=== PATIENT | female | born 1995 | race Caucasian/White ===

== ENCOUNTER 2021-06-04 01:20 | Day surgery (SDC) | payer OTHER, SELFPAY ==
[2021-05-27 16:14] VITALS: BMI 24.7
--- NOTE | 2021-06-03 14:16 | WPDANESEPPF ---
Anes - Initial Pre Proc Eval Procedure: Operation Date: 06/04/21 07:30 Proposed Procedures p Abdominoplasty - Mikie Israel MD Date/Time: 06/03/21 14:16 Surgeon: Mikie Israel MD Pre Op Diagnosis: Skin Laxity Patient Data Age: 25 Gender: F Height: 1.57 m Weight: 61.24 kg Allergies Allergy/AdvReac Type Severity Reaction Status Date / Time No Known Allergies Allergy Unknown Verified 02/17/21 08:57 Home Medications Medication Instructions Recorded Confirmed Type cetirizine [Zyrtec] 10 mg PO DAILY 02/17/21 05/27/21 History fexofenadine [Chhaya Allergy] 180 mg PO DAILY 02/17/21 05/27/21 History carisoprodol 350 mg PO TID PRN 05/28/21 05/28/21 History docusate sodium 100 mg capsule 100 mg PO DAILY #14 cap 05/28/21 05/28/21 Rx ondansetron HCl [Zofran] 4 mg PO Q8H PRN 05/28/21 05/28/21 History oxycodone-acetaminophen 1 tablet PO Q6H PRN 05/28/21 05/28/21 History carisoprodol 350 mg tablet 350 mg PO TID PRN #21 tablet 06/01/21 Rx oxycodone-acetaminophen 5 mg-325 1 tablet PO Q6H PRN #15 tablet 06/01/21 Rx mg tablet Patient hx anesthesia problems: none Family hx anesthesia problems: none PMFSH Past Medical History Medical History Complication of anesthesia Surgical History Surgical History History of Family History Family History Other Breast cancer Esophageal cancer Heart attack Social History Social History Smoking status: Never smoker Alcohol intake: never Substance use: never Substance use type: does not use Living arrangements: with family Spiritual care concerns: No Anes - Eval Final PreProcedure Day of Procedure 06/03/21 14:16 Patient weight: normal Heart: regular rate and rhythm Lungs: clear to auscultation and normal air movement Airway: Mallampati scale Neurological: alert and oriented Last oral intake: >/= 8 hours ASA classification: II Emergent: no Anesthetic plan: proceed Anesthesia type and monitoring: general ETT and standard monitoring Informed Consent: The patient's anesthetic plan and its attendant risks and benefits were discussed with the patient/family/POA. Questions were solicited and answers provided to the satisfaction of the patient/family/POA.
[2021-06-04] VITALS (15 sets, daily range): BP systolic 90–118; BP diastolic 57–85; PULSE 47–90; RESP 10–20; TEMP 36.3–36.9; O2SAT 95–100; BMI 24.8
--- NOTE | 2021-06-04 06:47 | WPDHPUPDATE1 ---
History and Physical Update Update Date/Time: 06/04/21 06:47 History and Physical has been reviewed, including an updated exam of the patient. There are NO changes in the patient's condition. Risks, benefits, and alternatives have been discussed and questions answered. Patient agrees to proceed with procedure.
[2021-06-04 06:57] LABS: Urine Cotinine NEGATIVE
--- NOTE | 2021-06-04 06:58 | W.PM.PROC2 ---
Procedure Note - Detailed Date of Procedure 06/04/21 Pre-op Diagnosis Skin Laxity Post-op Diagnosis same Procedure Performed Progressive tension abdominoplasty with lateral extended scar. Surgeon Mikie Israel MD Anesthesia general Findings Tissue removed - 1288 grams Description of Procedure She is here today for abdominoplasty. Previously and again today the risks, benefits, alternatives were discussed in extensive detail. I wanted her to be very realistic about the risks involved as well as expectations. We discussed aftercare and what to monitor for. I was very upfront about the risks of wound breakdown leading to loss of skin, open wounds, and need for additional procedures with permanent abdominal deformity. We discussed DVT/PE risks and management. Made sure answered all of her questions to her satisfaction today and consent was obtained. She was marked in the preoperative holding area with their verification. The patient was taken to the operating room placed supine on the operating table. Anesthesia was provided by anesthesiology. A gonzales catheter was started. She was prepped and draped in a standard sterile fashion. A surgical time-out was taken. I placed the patient in a flexed position to verify the upper and lower markings would reach. I then placed her supine. A thorough abdominal examination was completed. Stab incisions were made and used tumescent solution. A 10 blade was used to make the upper incision. I continued dissection down to the level of fascia. Elevated just what was necessary for repair of the diastasis and discontinuous undermining otherwise. I then again flexed the bed to verify the upper skin flap would reach the lower markings without tension. Once verified I placed her supine once again and a 10 blade used to make the lower incision. I elevated up to level the umbilicus and left the umbilicus intact on a well-vascularized stalk. The intervening tissue was removed. A 2 mm blunt cannula and Exparel which was mixed 20 cc in 100 cc for a total volume of 120 cc I injected deep to the fascia bilaterally as well as along the incision lines. I plicated the diastasis recti using 0 PDO stratafix barbed suture. This was in 2 separate layers using 2 separate sutures as well. I repaired around the umbilicus leaving plenty of room for well-vascularized stalk of the umbilicus with 2-0 PDS. The patient was flexed and starting from superior to inferior began plication using 2-0 Vicryl to obliterate all space in a standard progressive tension fashion. At the umbilicus I marked out the location of the skin and inset this with 3-0 Monocryl and 4-0 nylon. I continued the remainder of the plication using 2-0 Vicryl until I reached my lower planned scar line. I trimmed any excess skin of the upper flap making sure this was a tension-free closure. I then approximated using a 3 point suture with 2-0 Vicryl followed by 3-0 stratafix ,running subcuticular 4-0 Monocryl, and tissue glue. Fluffs and an abdominal binder were placed. The patient was transferred to the bed in a flexed position. Awoken and taken to the PACU without difficulty. All instrument and sponge counts were correct at the end of the case. Estimated Blood Loss 40 Drains No Packing No Pathology none sent Complications No immediate complications Condition stable Disposition PACU
[2021-06-04] MEDS: LACTATED RINGERS 1,000 ML 30 ML IV CONT ×3 (07:05→11:43)
[2021-06-04 07:08] LABS: Hematocrit 39.1 % (37.0-47.0); Hemoglobin 13.8 g/dL (12.0-15.0)
--- NOTE | 2021-06-04 07:11 | ECG_ITS ---
Measurements Intervals [place] Rate: 74 P: 38 GA: 204 QRS: 66 QRSD: 85 T: 31 QT: 363 QTc: 404 Interpretive Statements SINUS RHYTHM WITH SINUS ARRHYTHMIA INCOMPLETE RIGHT BUNDLE BRANCH BLOCK BORDERLINE ECG Electronically Signed On 06-04-2021 7:53:00 CDT by Kike Nunez D.O.
[2021-06-04] MEDS: FAMOTIDINE 20 MG/2 ML VIAL IV PUSH (07:17)
[2021-06-04] MEDS: SCOPOLAMINE 1.5 MG PATCH TRANSDERM (07:17)
[2021-06-04] MEDS: ceFAZolin 2 GM/D5W 50 ML 2 GM/50 ML BAG IVPB (07:28)
[2021-06-04] MEDS: TRANEXAMIC ACID 1,000MG/ISO100 1,000 MG/100 ML BAG 200 MG IVPB (07:28)
[2021-06-04] MEDS: BUPIVACAINE/EPINEPHRINE 0.5% 50 ML VIAL (08:21)
[2021-06-04] MEDS: LACTATED RINGERS IRRIG 1,000 ML, LIDOCAINE HCL 1% LOCAL INJ 50 ML, EPINEPHrine HCL INJ ... INFILTRATE (08:23)
[2021-06-04] MEDS: fentaNYL CITRATE INJ (*CRX) 100 MCG/2 ML VIAL 25 MCG IV PUSH (11:33)
--- NOTE | 2021-06-04 12:37 | PC.NURSE ---
This patient, Karina Shine, was received from PACU on 06/04/21 at 1237. Patient/family oriented to unit policies and routines
[2021-06-04] MEDS: LACTATED RINGERS 1,000 ML 125 ML IV CONT (13:10)
[2021-06-04] MEDS: carisoprodoL (*CRX) 350 MG TABLET PO ×2 (13:16→18:41)
[2021-06-04] MEDS: oxyCODONE/ACETAMINOPHEN (*CRX) 5-325 MG TABLET PO ×2 (16:03→20:28)
[2021-06-04] MEDS: ENOXAPARIN 40 MG/0.4 ML SYRINGE SUB-Q (18:40)
[2021-06-04] MEDS: DOCUSATE SODIUM 100 MG CAPSULE PO (21:21)
[2021-06-05] MEDS: carisoprodoL (*CRX) 350 MG TABLET PO ×2 (00:37→07:25)
[2021-06-05] MEDS: oxyCODONE/ACETAMINOPHEN (*CRX) 5-325 MG TABLET PO ×3 (00:47→10:00)
[2021-06-05 04:08] VITALS: BP 110/89; PULSE 71; RESP 16; TEMP 36.6; O2SAT 99
--- NOTE | 2021-06-05 07:12 | WPDPN ---
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 Will discharge home. Follow up in 1 week. Today we had a lengthy discussion about the care with her significant other. Went over what to monitor for. Activity limitations. This was a lengthy open-ended conversation making sure she was well informed. Answered all of her questions this. They voiced understanding. Will discharge home. Call with any questions or concerns in the meantime. We discussed what is a medical emergency and want to proceed to the emergency room/ dial 911. Subjective Date/time seen: 06/05/21 6:40 She states she has done well overnight. No nausea vomiting. No fevers or chills. No shortness of breath. No chest pain. No calf tenderness. Pain is controlled. Review of Systems Review of Systems: All systems reviewed & are unremarkable except as noted in HPI and below Exam Narrative: Exam Narrative: Abdomen soft. No signs of infection. No hematoma. No seroma. Good color and capillary refill. No calf tenderness. Negative Homans. Objective Data Vital Signs Vital Signs: Vital Signs - 24 hr 06/04/21 10:25 06/04/21 10:40 06/04/21 10:55 Temperature 36.4 C Pulse Rate 90 68 69 Respiratory Rate 18 10 L 14 Blood Pressure 104/62 117/72 117/60 Pulse Oximetry 100 100 95 06/04/21 11:10 06/04/21 11:25 06/04/21 11:40 Temperature Pulse Rate 77 74 78 Respiratory Rate 14 18 18 Blood Pressure 111/60 109/58 L 104/66 Pulse Oximetry 97 98 98 06/04/21 11:55 06/04/21 12:10 06/04/21 12:25 Temperature Pulse Rate 73 64 73 Respiratory Rate 16 12 18 Blood Pressure 118/75 107/64 106/62 Pulse Oximetry 97 95 95 06/04/21 12:32 06/04/21 12:45 06/04/21 15:45 Temperature 36.9 C 36.8 C Pulse Rate 82 62 58 L Respiratory Rate 20 18 16 Blood Pressure 105/57 L 101/63 106/85 Pulse Oximetry 98 98 100 06/04/21 19:08 06/04/21 23:34 06/05/21 04:08 Temperature 36.3 C L 36.7 C 36.6 C Pulse Rate 47 L 56 L 71 Respiratory Rate 16 16 16 Blood Pressure 90/60 L 102/60 110/89 Pulse Oximetry 98 100 99 Intake/Output Intake/Output: Intake & Output 06/02/21 06/03/21 06/04/21 06/05/21 23:59 23:59 23:59 23:59 Intake Total 2900 Output Total 2450 100 Balance 450 -100 Meds/Results Medications: Active Medications Generic Name Dose Route Start Last Admin Trade Name Freq PRN Reason Stop Dose Admin Carisoprodol 350 mg 06/04/21 12:50 06/05/21 00:37 Carisoprodol (*Crx) 350 Mg Tablet PO 350 mg Q6HR LAVON Administration Docusate Sodium 100 mg 06/04/21 21:00 06/04/21 21:21 Docusate Sodium 100 Mg Capsule PO 100 mg Q12HR LAVON Administration Enoxaparin Sodium 40 mg 06/04/21 17:00 06/04/21 18:40 Enoxaparin 40 Mg/0.4 Ml Syringe SUB-Q 40 mg DAILY@1700 LAVON Administration Morphine Sulfate 2 mg 06/04/21 10:04 Morphine Sulfate (*Crx) 2 Mg/Ml Inj IV PUSH Q2H PRN PAIN RATED 7-10 Ondansetron HCl 4 mg 06/04/21 10:04 Ondansetron Inj 4 Mg/2 Ml Vial IV PUSH Q6H PRN Nausea Oxycodone/Acetaminophen 1 - 2 tablet 06/04/21 10:04 06/05/21 04:08 Oxycodone/Acetaminophen (*Crx) 5-325 Mg Tablet PO 1 tablet Q6H PRN Administration Pain Labs Labs: Laboratory Results - last 24 hr 06/04/21 06:59 Hgb 13.8 Hct 39.1
--- NOTE | 2021-06-05 07:15 | PM.DS ---
DS: Admitting Diagnosis Admitting Diagnosis Skin laxity DS: Discharge Diagnosis Discharge Diagnosis (1) Skin laxity: Code(s): L57.4 - Cutis laxa senilis Status: Acute DS: Summary Hospital Course Hospital Course: Patient underwent after progressive tension abdominoplasty. Postoperatively has done very well. Pain controlled. Tolerating diet. Ambulating. Will discharge home. Time Spent with Patient Time attestation: Total time spent providing and/or coordinating discharge services: Exam Narrative: Exam Narrative: Abdomen soft. No signs of infection. No hematoma. No seroma. Good color and capillary refill. No calf tenderness. Negative Homans. DS: Data Data Completed and Pending Labs on day of discharge: Labs from last 24 hours 06/04/21 06:59 Hgb 13.8 Hct 39.1 Discharge Plan Discharge Patient Disposition: Home, Self-Care Discharge Instructions: POST OPERATIVE DISCHARGE INSTRUCTIONS MIKIE ISRAEL M.D. [facility] [address] [place] [address] [address] for 24 hours after anesthesia and while you are taking pain medication. Take all prescribed medication as directed Diet as tolerated. No lifting or activity that raises blood pressure for 48 hours. Regular walking / ambulation. May shower.. Once you shower do not take pain medication before showering as the combination of medication and heat may cause you to feel dizzy or pass out. No pools or tubs for 2 weeks. Call with any questions or concerns. Slowly stand up straight over the week as tolerated. No lifting more than 20 pounds or straining for 6 weeks. Dressing Care: Abdominal binder 23 hours per day. If you have any questions or concerns, please call the office . If it is after hours you will be directed to the applications scientist exchange. Shortness of breath, chest pain, or other medical emergency dial 911 / proceed to the Emergency Room. Remove the Scopolamine patch that was placed behind your ear in 72 hours or less. Wash your hands after touching. Stand Alone Forms: General Discharge Instructions Follow-up/Referrals: Mikie Israel MD [Physician] - 1 Week Discharge Medications: Continued fexofenadine 180 mg PO DAILY RF: 0 cetirizine 10 mg PO DAILY RF: 0 carisoprodol 350 mg tablet 350 mg PO TID PRN (Reason: Muscle Pain) RF: 0 oxycodone-acetaminophen 5-325 mg tablet 1 tablet PO Q6H PRN (Reason: Pain) RF: 0 ondansetron HCl [Zofran] 4 mg tablet 4 mg PO Q8H PRN (Reason: Nausea) RF: 0 docusate sodium [Colace] 100 mg capsule 100 mg PO DAILY Qty: 14 RF: 0 carisoprodol [Soma] 350 mg tablet 350 mg PO TID PRN (Reason: muscle pain) Qty: 21 RF: 0 oxycodone-acetaminophen [Percocet] 5-325 mg tablet 1 tablet PO Q6H PRN (Reason: pain) Qty: 15 RF: 0
[2021-06-05] MEDS: DOCUSATE SODIUM 100 MG CAPSULE PO (07:24)
[2021-06-05 08:35] VITALS: BP 99/62; PULSE 85; RESP 16; TEMP 37.1; O2SAT 99
== END 2021-06-05 10:20 | disposition home or self-care (01) ==
LOC: ANHSURGERY 07:11 → ANHOB2 12:36
PROVIDERS: Anesthesiology; Visit Provider Surgery Plastic and Reconstructive Surgery
PROC: (CPT 15830; principal; 2021-06-04 07:30)
DX: Z41.1 Encounter for cosmetic surgery (principal); L57.4 Cutis laxa senilis; Z79.899 Other long term (current) drug therapy
CPT/HCPCS: 15830; 15847; 80307; 85014; 85018; 93005; 99199; A9270; J0171; J0330; J0690; J1100; J1170; J1200; J1650; J2250; J2405; J2704; J3010; J7120

== ENCOUNTER 2025-11-04 13:35 | Outpatient (CLI) | payer OTHER, SELFPAY ==
--- NOTE | ~2025-11-04 | MMUS_ITS ---
EXAMINATION: US breast LT limited, MM diagnostic guerda BI w xiomara HISTORY: Palpable abnormality on the left. TECHNIQUE: Grayscale sonography over the area(s) of interest with color Doppler if there is a finding. Craniocaudal and mediolateral oblique 3-D tomosynthesis images were obtained and synthetic 2-D images were generated. CAD analysis was submitted and interpreted. COMPARISON: None available. ULTRASOUND FINDINGS: No cystic or solid masses are seen in the area(s) of concern. Symptoms nothing was seen in the palpable area sonographically, the decision was made to perform mammography. MAMMOGRAM FINDINGS: BREAST PARENCHYMAL COMPOSITION: Dense: The breasts are heterogeneously dense, which may obscure small masses. In the area of palpable clinical concern, there is some asymmetric breast parenchyma of the axillary tail. This does not appear masslike and is considered normal. There is a small amount on the right as well. No suspicious masses are seen. There are no suspicious calcifications. No unexplained architectural distortion is seen. There are no skin or nipple abnormalities identified. There is no adenopathy seen on the images submitted. IMPRESSION: No mammographic evidence to suggest malignancy is seen. The patient may return to screening mammography as per ACR guidelines. BI-RADS 1 - Negative. Reviewed, dictated and finalized at location C[facility] IMPRESSION: No mammographic evidence to suggest malignancy is seen. The patient may return to screening mammography as per ACR guidelines. BI-RADS 1 - Negative.
--- OUTSIDE RECORDS SUMMARY | 2025-11-04 15:19 | XMS_ITS | Data Portability ---
Author Organization [facility] Address [address] [place] [place] [address] [place] [address] Assessment Encounter Date Assessment Date Assessment LastModified by Organization Details LastModified Time 10/24/2024 10/24/2024 Annual gynecological exam performed. Patient will come back in a year unless there are new symptoms. [email or web address] Not available 10/24/2024 14:30:32 Plan of Treatment Reminders Order Date Submit Date Provider Last Modified By Organization Details Last Modified Time Details Appointments None recorded. Lab pap, IG + HR HPV - HPV regardless but if HPV is positive need subtyping 16,18/[address]/GC/Trich 2023 [facility] (Lab), [address], [place], [address], 4 14:40:22 Referral None recorded. Procedures None recorded. Surgeries None recorded. Imaging US, breast, unilateral 2023 024 [facility], [address], [address], [place], [address], 5 05:00:56 Medication Orders Mirena 21 mcg/24 hr (up to 8 years) 52 mg intrauterin e device 2023 024 [id number], [address], [place], [place], [id number], 4 14:33:12 Patient TargetsNo targets recorded. Patient InstructionsNo instructions recorded. Reason for Referral None Reported. Results Created Date Observation Date Name Description Value Unit Range Abnormal Flag Note LastModifiedBy Organization Detail LastModifiedTime 10/24/20 24 10/24/2024 IMAGE GUIDE D PAP AND HPV REGAR DLESS image guided Pap, HPV regardless of Pap result SEE RESULT S BELOW abnormal CASE REPOR T: Cytol ogy Gynec ologi stephanie Repor t Case: [id number] Autho malcom johnson Provi gladys: Dermo dy, Lila , ANP, DIRECTOR VALIDATION Colle cted: 10/24 1423 Order ing Locat ion: [place] Path[facility] log[facility] Recei briana: 10/25 1055 First Scree n: Bella Turner ret, CT Patho logis t: Terrell clement , Neetu Yepez MD Speci men: Scree anuradha Pap - Image d, Cervi x STATE MENT OF ADEQU ACY: Satis facto ry for evalu ation Trans forma tion zone compo nent prese nt ----- ----- ----- ----- ----- ----- ----- ----- ----- ----- ----- ----- ----- ----- ----- ----- ----- ---- FINAL DIAGN OSIS: Epith elial Cell Abnor malit y, Squam ous Cell: Atypi stephanie Squam ous Cells of Undet ermin ed Signi antonella ce (ASC- US). Shift in allegra sugge stive of bacte rial vagin osis. Elect hayley arriola by Neetu clement MD on 11/05 at 1337 [facility] ROOM ATTENDANT ----- ----- ----- ----- ----- ----- ----- ----- ----- ----- ----- ----- ----- ----- ----- ----- ----- ---- HPV RESUL TS: HPV mRNA E6/E7 : Posit nacho - HPV mRNA Detec [place] HPV GENOT YPE 16 (VISH) : Not Detec [place] HPV GENOT YPE 18/45 (VISH) : Not Detec [place] NOTE: This high risk HPV mRNA assay detec ts fourt een high- risk HPV types (16, 18, 31, 33, 35, 39, 45, 51, 52, 56, 58, 59, 66, 68) witho ut diffe renti ation . This assay can diffe renti ate HPV 16 from HPV 18/45 , but does not diffe renti ate betwe en HPV 18 and HPV 45. A negat nacho HPV 16, 18/45 genot ype assay resul t does not exclu de the possi bilit y of cytol ogic abnor malit ies or of futur e or under lying SOCORRO 1, SOCORRO 3 or cance r. COMME NT: This speci men was revie wed by a Cytot echno logis t and/o r Patho logis t (as indic ated in this repor t) after evalu ation using the Thinp rep Imagi ng Syste m. CLINI STEPHANIE INFOR MATIO N: Menst rual Statu s: LMP (if appli cable ): Clini stephanie Histo ry/Pr eviou s Pap: Type of Neopl gris (if appli cable ): Signi fican t Clini stephanie Findi ngs: Other Histo ry: Hormo shiva (if appli cable ): VANESSA ROSS FOLLO W-UP: Follo w up as warra nted, based on curre nt guide lines and indiv idual patie nt consi derat ions. Not Available [facility] (Lab) [address], [place], [address], 11/05/2024 14:40:22 10/24/20 24 10/24/2024 TRICH OMONA S VAGIN BOBO (RRNA ) trichomonas vaginalis ribosomal RNA (rrna) Negati ve negati ve Not Available [facility] (Lab) [address], [place], [address], 11/05/2024 14:40:22 10/24/20 24 10/24/2024 CT/GC (VISH) , THINP REP VIAL chlamydia trachomatis, PCR Negati ve negati ve Not Available [facility] (Lab) [address], [place], [address], 11/05/2024 14:40:23 10/24/20 24 10/24/2024 CT/GC ([facility]) , THINP REP VIAL neisseria gonorrhoeae, PCR Negati ve negati ve Not Available [facility] (Lab) [address], [place], [address], 11/05/2024 14:40:23 Result Notes None recorded. Problems Name Problem SNOMED Code Status Onset Date Resolution Date Notes Provider Name and Address Organization Details Recorded Time Amenorrh ea 17216462 Completed 201302/03/2022 Absence of menstruat ion;Recor ded Elsewhere : No Locati on: [facility] So urce: EHR Chron ic: N Practic e ID: 0001 Bill able Time: 08:30:00 AM Kita [facility] 2 12:12:13 Ultrason ography Completed 201302/03/2022 screening for malformat ion using ultrasoni cs;Practi ce ID: 0001 Kita [facility] 2 12:15:58 Antenata l screenin g Completed 201302/03/2022 screening for malformat ion using ultrasoni cs;Practi ce ID: 0001 Kita [facility] 2 12:12:15 Congenit al malforma tion 437055067 Completed 201302/03/2022 screening for malformat ion using ultrasoni cs;Practi ce ID: 0001 Kita [facility] 2 12:12:22 Pregnanc y test positive [id number] Completed 03/11/ 2014 02/03/2022 Positive Test;Prac marco a ID: 0001 Kita george, [facility] 2 12:12:39 Primigra filipe [id number] Completed 201302/03/2022 Supervisi on of normal first ;Practice ID: 0001 Kita george [facility] 2 12:12:41 Labor and delivery complica [place] by heart rate anomaly 708970024 Completed 201302/03/2022 HEART RATE NON REASSURIN G;Practic e ID: 0001 Kita george, [facility] 2 12:12:34 Single live from singleto n pregnanc y [id number] Completed 201302/03/2022 Mother with single liveborn; Practice ID: 0001 Kita george [facility] 2 12:15:51 Postpart um care Completed 201302/03/2022 Postpartu m follow-up ;Practice ID: 0001 Kita george, [facility] 2 12:12:35 Family planning surveill ance Completed 201402/03/2022 Surveilla nce of other contracep tive method;Pr actice ID: 0001 Kita george [facility] 2 12:12:23 Pregnanc y test negative [id number] Completed 201402/03/2022 Negative Test;Prac marco a ID: 0001 Kita george [facility] 2 12:12:38 Speciali zed medical examinat ion Completed 201402/03/2022 Routine gynecolog ical examinati on;Practi ce ID: 0001 [facility] 12:15:55 Screenin g for malignan t neoplasm of cervix Completed 201402/03/2022 Pap Smear;Pra ctice ID: 0001 Kita george [facility] 2 12:12:43 Clinical finding Completed 201402/03/2022 Encounter for surveilla nce of injectabl e contracep tive;Prac marco a ID: 0001 Kita george [facility] 2 12:12:[address] Concept Completed 201502/03/2022 Encntr for television servicer exam (general) (routine) w/o abn findings; Practice ID: [address] [facility] 2 12:15:53 Infectio n screenin g Completed 201502/03/2022 Encounter for screening for oth infec/par astc diseases; Recorded Elsewhere : No Locati on: [facility] So urce: EHR Chron ic: N Practic e ID: 0001 Bill able Time: 02:45:00 PM Kita Espinoza [facility] 2 12:12:26 Syphilis test finding [id number] Completed 201502/03/2022 Encntr screen for infection s w sexl mode of transmiss ;Recorded Elsewhere : No Locati on: [facility] So urce: EHR Chron ic: N Practic e ID: 0001 Bill able Time: 02:45:00 PM Kita Espinoza [facility] 2 12:15:56 Body mass index 25-29 - overweig 675164549 Completed 201502/03/2022 Body mass index (BMI) 26.0-26.9 , adult;Rec orded Elsewhere : No Locati on: [facility] So urce: EHR Chron ic: N Practic e ID: 0001 Bill able Time: 02:45:00 PM Kita Espinoza [facility] 2 12:12:17 Galactor nkechi [facility] [id number] Completed 201602/03/2022 Galactorr hea not associate d with kj kent;Practic e ID: [address] [facility] 2 12:12:25 Insertio n of intraute rine contrace ptive device Completed 201602/03/2022 Encounter for insertion of intrauter ine contracep tive device;Pr actice ID: [address] [facility] 12:12:32 Clinical finding Completed 201602/03/2022 Presence of (intraute rine) contracep tive device;Re corded Elsewhere : No Locati on: [facility] So urce: EHR Chron ic: N Practic e ID: 0001 Bill able Time: 03:15:00 PM Kita Espinoza [facility] 2 12:12:20 Problem Notes None recorded. Procedures Surgical History Date Name Laterality Status Provider Name and Address Organization Details Recorded Time 11/05/20 24 IUD Replacement completed LILA ANTON NP [address], [place], [address], [facility] 11/05/2024 14:32:46 11/14/19 [address] [facility] 10/24/2024 14:34:58 09/14/20 16 Date of Last Pap Smear completed [facility] 10/24/2024 14:26:18 Imaging Results None recorded. Procedure Notes None recorded. Medical Equipment None Reported. Allergies Allergen ID Allergen Name Allergen Category Reaction Reaction Severity Criticality Documentation Date Start Date Code Code System Note Provider Name and Address Organization Details Recorded Time 26362 weed pollen environme nt,medica tion Not available Not available Not available 10/24/[address] [facility] 14:26:18 85102 tree and shrub pollen environme nt,medica tion Not available Not available Not available 10/24/2024 [facility] 14:26:18 01999 cat dander environme nt facial swelling moderate Not available 10/24/[address] [facility] 4 14:26:18 62212 Canis lupus familiari s extract environme nt Not available Not available Not available 10/24/2024 09869 4 [facility] 4 14:26:18 40110 sesame seed extract food Not available Not available Not available 10/24/2024 94567 46 RxNorm [facility]ini [facility] 4 14:26:18 Medications Name Sig Start Date Stop Date Status Note LastModified by Organization Details LastModified Time Mirena 21 mcg/24 hr (up to 8 years) 52 mg intrauter ine device Take 1 device by intraute rine route. 2023 active Not Available Not Available Not Avai lable metronida zole 500 mg tablet Take 1 tablet twice a day by oral route for 7 days. 12/05 completed Not Available Not Available Not Available Depo-Prov era 150 mg/mL intramusc ular suspensio n inject 1 millilit er by intramus cular route every 3 months 06/24 completed Prescrib ed Elsewher e: No Locat ion: [facility] odify By: ismael scanlon DateTime : 03/31/20 15 03:00:00 PM Not Available Not Available Not Available Vitamin D2 1,250 mcg (50,000 unit) capsule take 1 capsule by oral route every week 09/03 completed Prescrib ed Elsewher e: No Locat ion: [facility] M odify By: moises carlos DateTime : 03/15/20 14 10:03:55 AM Not Available Not Available Not Available Depo-Prov era 150 mg/mL intramusc ular syringe inject 1 millilit er by intramus cular route every 3 months 09/13 completed Prescrib ed Elsewher e: No Locat ion: [facility] odify By: shadi garcia DateTime : 05/27/20 17 02:26:36 PM Not Available Not Available Not Available Glenis Evans 380A 11/05 completed Not Available Not Available Not Available Triveen-D uo DHA 29 mg-1 mg-400 mg oral pack take 2 by Oral route every day for 30 days 02/20 completed Prescrib ed Elsewher e: No Locat ion: [facility] odify By: gianfranco carlos DateTime : 01/23/20 14 08:30:00 AM Not Available Not Available Not Available One Daily 27 mg iron-800 mcg tablet take 1 tablet by oral route every day 10/24 completed Prescrib ed Elsewher e: Yes Loca tion: [facility] odify By: moises carlos DateTime : 09/03/20 14 11:30:00 AM Not Available Not Available Not Available Vitals Date Recorded Body height Body mass index (BMI) Body weight Systolic And Diastolic Provider Name and Address Organization Details Last Updated DateTime 10/24/2024 157.48 cm 22.2 kg/m2 84744.83 g 126/80 mm[Hg] [facility] 10/24/2024 14:31:52 Date Recorded Body height Body mass index (BMI) Body weight Systolic And Diastolic Provider Name and Address Organization Details Last Updated DateTime 11/05/2024 157.48 cm 22.6 kg/m2 79182.02 g 124/82 mm[Hg] [facility] 11/05/2024 14:30:11 Social History Question Answer Notes LastModified by Organizat ion Details LastModified Time Tobacco Smoking Status Never Smoker Kita Alexis [facility] 02/03/2022 13:35:13 Do You Have An Advance Directive? No [email or web address] Information n ot available 10/24/2024 How Many Years Have You Consumed Alcohol? 7 [email or web address] Information not available 10/24/2024 Are You Blind Or Do You Have Difficulty Seeing? No Information n ot available 02/03/2022 What Is Your Level Of Caffeine Consumption? Moderate [email or web address] Information not available 10/24/2024 How Much Tobacco Do You Chew? None [email or web address] Information not available 10/24/2024 In The 14 Days Before Symptom Onset, Have You Had Close Contact With A Laboratory-confirm ed COVID-19 While That Case Was Ill? No [email or web address] Information n ot available 10/24/2024 In The 14 Days Before Symptom Onset, Have You Had Close Contact With A Person Who Is Under Investigation For COVID-19 While That Person Was Ill? No [email or web address] Information not available 10/24/2024 Have You Been To An Area Known To Be High Risk For COVID-19? No [email or web address] Information not available 10/24/2024 Are You Deaf Or Do You Have Serious Difficulty Hearing? No Information not available 02/03/2022 What Type Of Diet Are You Following? REGULAR Information n ot available 02/03/2022 What Is The Highest Grade Or Level Of School You Have Completed Or The Highest Degree You Have Received? [id number] [email or web address] Information not available 10/24/2024 Are There Any Guns Present In Your Home? No Information not available 10/24/2024 Do You Use Protection During Sex? Usually [email or web address] Information not available 10/24/2024 Do You Use Your Seat Belt Or Car Seat Routinely? Yes Information not available 02/03/2022 Do You Have Smoke And Carbon Monoxide Detectors In Your Home? Yes Information not available 02/03/2022 How Much Tobacco Do You Smoke? No [email or web address] Information not available 10/24/2024 Do You Use Sunscreen Routinely? Yes Information not available 02/03/2022 Have You Used IV Drugs? No [email or web address] Information not available 10/24/2024 Do You Have Difficulty Walking Or Climbing Stairs? No Information not available 02/03/2022 Sex: Unknown Functional Status Question Answer Note LastModified by Organizat ion Details LastModified Time Do you use any illicit or recreational drugs? Yes [email or web address] Information not available 10/24/2024 What is your level of alcohol consumption? Occasional Information not available 02/03/2022 Are you able to walk independently without assistance or assistive devices? [email or web address] Information not available 02/03/2022 Are you able to care for yourself independently? 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 No Information not available 02/03/2022 What is your exercise level? Moderate Information not available 02/03/2022 Mental Status Question Answer Note LastModified by Organization D etails LastModified Time Do you feel stressed (tense, restless, nervous, or anxious, or unable to sleep at night)? [id number] Information not available 02/03/2022 Family History Relationship Description Onset Age of this Age Resolved Age Notes LastModified by Organization Details LastModified Time Maternal Grandfather Hypertensive disorder Not available 2021 13:33:19 Maternal Grandfather Diabetes mellitus Not available 2021 13:33:27 Maternal Grandmother Malignant neoplasm of breast Not available 2021 13:33:42 Maternal Uncle Hypertensive disorder Not available 2021 13:33:56 Maternal Uncle Diabetes mellitus Not available 2021 13:34:15 Father Hypertensive disorder Not available 2023 14:34:22 Father Diabetes mellitus [email or web address] Not available 2023 14:34:34 Medical History Condition Response Allergies (Food, seasonal, environmental ) N Other N Blood Transfusion N Drug/Latex Allergies/Reactions N Breast Cancer N Dermatologic Disorders N Lung Disease N Defects or Inherited Disease N Breast Problem N Gestational Diabetes N Hematologic disorders N Anesthesia Complications N History of STI N Deep Vein Thrombosis N Polycystic ovary syndrome N Anxiety Disorder N Autoimmune disease N Arthritis N Infertility N Polyps N Acid Reflux (GERD) N History of abnormal pap N Cancer N Stroke N Varicosities N Neurologic/Epilepsy N Endometriosis N High Cholesterol N Headaches N Fibromyalgia N Kidney Disease N Heart Problems N Kidney or Bladder Problems N Thyroid Problems N GI Problems N Eating Disorder N Anemia N Art (IVF or FET) N Psychiatric Illness N Ovarian Cancer N Diabetes N Pulmonary (TB, Asthma) N Hepatitis/Liver Disease N No Past Medical History N Eczema N Urinary Tract Infection N Abuse/Domestic Violence N Asthma N Trauma/Violence N Depression/ depression N Heart Disease N Pre-Eclampsia N Hypertension N Osteoporosis N Thrombophilias N Gynecological History Statement/Question Response Flow Light Date of LMP On BCP's at Conception? N N Was last menstrual period normal Y STIs/STDs N HPV Vaccine Y Duration of Flow (days) 5 Current Control Method IUD Age at First Child 18 Frequency of Cycle (Q days) 7 Sexually Active? Y IUD Age of first menstrual cycle 14 Date of Last Pap Smear 09/14/2016 Sexual Problems? N Desired Control Method IUD LMP Definite N Obstetrics History GPAL:G 1 P 1 0 0 1 Type Value Full Term 1 Living 1 Total 1 Past Encounters Encounter ID Performer Location Encounter Start Date Encounter Closed Date Diagnosis/Indication Diagnosis SNOMED-CT Code Diagnosis ICD10 Code Diagnosis IMO Codes Diagnosis Note [id number] Hugo Casey MD [place] [address] [address] 10/24/2024 14:24:07 10/24/2024 15:10:47 Gynecologic examination 64418021 Z01.419 Annual gynecologi stephanie exam performed. Patient will come back in a year unless there are new symptoms. Suggest Calcium with Vitamin D if not eating in diet. Patient advised to get annual flu shot. Recommend yearly physicals and perform monthly breast exams. Genetic testing is available for patients with family history of cancer. Engage in safe sexual practices, use condoms. Encouraged to have daily exercise. Avoid tobacco and illicit drugs, moderation of alcohol. If BMI greater than 25 dietary consult advised. If you have any questions please call or email. Pap smear- pap w/ HPV collected STI testing - requested Discussed the risks, benefits, and alternativ es to Mirena IUD. Discussed insertion and removal process. Discussed bleeding profile. Questions answered. Will schedule insertion with menses. Lump in up per outer quadrant of left breast [id number] 63177 N63.21 We discussed her breast exam findings and pt is counseled and reassured. Questions answered.P atient advised to perform self-breas t exams and report any changes.Im aging: left breast ultrasound - order given, patient to schedule [id number] Hugo Casey MD [place] [address] [address] 11/05/2024 13:32:28 11/05/2024 14:41:46 Insertion of intrauterine contraceptive device [id number] Z30.430 She has been counseled on all of the r/b/a of removal and replacemen t of an intrauteri ne device that include but are not limited to uterine perforatio n, injury to cervix, vagina, bladder, and bowel. Risks of bleeding due to injury or increased irregular bleeding due to progestin effect of the device. Risks of infection would be increased within the first 21 days of placement with concomitan t cervicitis .She understand s that the device will need to be removed in this instance due to increased risk of Pelvic inflammato ry disease. Patient is aware she is at higher risk for STD and if contracted she could lose her fertility. Pt is aware that if occurs that she should contact office immediatel y to rule out ectopic which could be life threatenin g.Mirena IUD will also need to be removed and this could cause miscarriag e. Patient also informed that in the event her strings are absent or embedded at the time of removal she may need to have the IUD surgically removed. She was informed of the above and properly consented. Mirena IUD placed w/o complicati on. Patient should return to office in one month to check for string placement. Patient to expect irregular bleeding but should be seen in the ED if bleeding increases to soaking a pad an hour for at least 2 hours. She verbalized understand ing. Removal of intrauterine contraceptive device [id number] Z30.432 Health Concerns Section Related Observation LastModified by Organization Detai ls LastModified Time None Recorded Concern Status LastModified by Organization Details LastModified Time None Recorded Advance Directives Directive N: Payers Insurance Date Sequence Insurance Name Policy Number Policy Galvan Covered Member ID Galvan Member ID Guarantor Name 11/05/2024 1 [facility] Karina Shine [id number] Karina Shine 12/03/2024 1 [facility] [id number] Karina Shine [id number] Karina Shine Notes Date Note Type Note Provider Name and Address Organization Details Recorded Time 10/24/20 24 text/ht ml Annual GYNReported by PatientGenitourinary symptomsFor menstrual cycle, patient reportsnormal menses. For urinary symptoms, patient reportsno hematuriaandno incontinence. For vulva, patient reportsno genital lesion. For vagina, patient reportsnormal vaginal discharge.Breast symptomsFor breast, patient reportsbreast lumpbut reportsno breast painandno nipple discharge.ContraceptionFor current contraception, patient reportssatisfied with current contraceptionandintrauterine device (iud).Endocrine symptomsFor sexual complaints, patient reportsno sexual complaints,no pain during intercourse, andnormal libido. For menopausal symptoms, patient reportsno menopausal symptomsandnormal vaginal lubrication.Psychological symptomsFor psychological symptoms, patient reportsno depression,no anxiety, andno pmdd. New patient presents to establish care. Patient c/o small lump on left breast near her axilla that appeared a year ago and has not changed in size, pt notices pain around the area near the start of her cycles. Patient denies skin changes or nipple discharge. Patient states that she has felt small lumps in right breast in the past, but they have gone away after her cycles. The left lump has persisted. Patient also desires IUD removal and replacement. Patient states that she had Mirena IUD placed in 2017, and requests new Mirena IUD. Nini george, [facility] 10/24/2024 15:14:16 11/05/20 24 text/ht ml Patient here for Mirena IUD removal and insertion. Informed consent obtained. LILA ANTON NP [address], [place], [address], [facility] 11/05/2024 14:40:25 OBGyn Episode Ob Episode Information Episode Created Date Number of Fetuses Patient Bloodtype Patient rh Status Prepregnancy Weight lbs Domestic Partner Domestic Partner Phone Father Name Catalyst Concentration Operator Status 10/24/20 24 1 CLOSED Fetus Data First Name Last Name Admitted to NICU Weight (g) Sex Living Outcome Pediatric Complications Fetus ID Race Codes Race Delivery Type 3175.14 4 M Full Term [id number] Primary David Calculation Initial David Date Initial Exam Date Initial Exam Provider Initial Ultrasound Date Last Menstrual Period Date Ultra Sound Weeks Gestation 0 Eighteen To Twenty Week David Update Ultra Sound Date Fundal Height At Umbil Quickening Date Ultra Sound Latest Weeks Gestation Final David Confirmed By Final David Confirmed Date Final David Date Ultra Sound Latest Days Gestation 0 0 Menstrual History Last Menstrual Date Menses Monthly On Bcp Conception Prior Menses Frequency Hcg Plus Date Menarche Onset Age Delivery Information Delivery Date Delivery Type Labor Anesthesia Weeks Gestation Incision Type Labor Labor Length Hrs Delivered By Post Complications Tubal Sterilization Discharge Date Comments 4 40 Discharge Information Feeding Method Contraceptive Method Maternal HG B and HCT Levels
== END 2025-11-04 13:36 | disposition home or self-care (01) ==
LOC: ANHFOHIMG 13:36
PROVIDERS: Visit Provider Student in an Organized Health Care Education/Training Program
DX: N63.21 Unspecified lump in the left breast, upper outer quadrant (principal)
CPT/HCPCS: 76642; 77062; 77066; G0279